=== PATIENT | female | born 1930 | race Caucasian/White ===

== ENCOUNTER → 2016-04-30 | Outpatient (REF) ==
[~2016-04-30] MED LIST: AMBIEN 10MG10 MG PO; CALCIUM1 CAP PO; CRESTOR40 MG PO; DITROPAN 5MG TAB5 MG PO; FERRATE325 MG PO; FISH OIL1000 MG PO; GLUCOPHAGE500 MG/TAB PO; GLUCOSAMINE500 MG PO; K-DUR 2020 MEQ PO; LASIX 20MG TABL20 MG PO; LEVOXYL0.05 MG PO; LEVOXYL0.075 MG PO; LISINOPRIL PO; MULTIPLE VITAMI1 TA3 PO; NATURAL E400 IU PO; NIACIN1 POW PO; STOOL SOFTENER100 M2 PO; THEO-DUR 3300 MG/TAB PO; VESICARE10 MG PO; VITAMIN B121000 MC2 PO; ZESTRIL40 MG PO
== END ==
LOC: ZLAB.WCH 16:15
DX: Z01.89 Encounter for other specified special examinations (principal)

== ENCOUNTER → 2017-01-24 | Outpatient (CLI) | payer MEDICARE | LOC: MC.RAD 14:00 | DX: Z12.31 Encounter for screening mammogram for malignant neoplasm of breast (principal) ==

== ENCOUNTER → 2018-01-20 | Outpatient (CLI) | payer MEDICARE ==
[2018-01-20 14:05] LABS: CALCIUM 9.4 mg/dL (8.4-10.2); CREATININE, serum 1.34 mg/dL (0.52-1.25); POTASSIUM 4.7 mmol/L (3.4-5.0)
[2018-01-20 14:17] LABS: THEOPHYLLINE 8.3 ug/mL (10.0-20.0)
== END ==
LOC: ZLAB.STJ 13:51
PROVIDERS: Family Medicine
DX: J44.1 Chronic obstructive pulmonary disease with (acute) exacerbation (principal); I07.1 Rheumatic tricuspid insufficiency

== ENCOUNTER → 2018-02-12 | Outpatient (CLI) | payer MEDICARE ==
[2018-02-12 11:50] LABS: ALBUMIN 4.1 gm/dL (3.5-5.0); BILIRUBIN,TOTAL 0.5 mg/dL (0.0-1.0); CALCIUM 9.5 mg/dL (8.4-10.2); CHOLESTEROL RISK RATIO 3.8; CREATININE, serum 1.81 mg/dL (0.52-1.25); POTASSIUM 4.3 mmol/L (3.4-5.0)
[2018-02-12 11:52] LABS: BASO % 0.6 % (0.0-2.0); EOS # 0.2 (0.0-0.7); EOS % 3.7 % (0-4.0); GRAN # 3.2 (1.4-6.5); GRAN % 65.7 % (42.2-75.2); LYMPH % 20.3 % (20.0-51.0); MEAN CELL VOLUME 93 fl (80.0-100.0); MEAN CORPUSCULAR HEMOGLOBIN 30 pg (27.0-31.0); MEAN CORPUSCULAR HGB CONC 33 g/dl (33.0-37.0); MEAN PLATELET VOLUME 11.2 fl (7.4-10.4); MONO # 0.5 (0.1-0.6); MONO % 9.3 % (1.7-9.3); PLATELET COUNT 172 K/mm3 (130-400); RED BLOOD COUNT 3.63 M/mm3 (4.10-5.30); REDCELL DISTRIBUTION WIDTH-CV 13.6 % (11.5-14.5)
[2018-02-12 11:53] LABS: HEMATOCRIT 33.7 % (37.0-47.0)
== END ==
LOC: ZLAB.STJ 11:00
PROVIDERS: Family Medicine
DX: I50.9 Heart failure, unspecified (principal); D64.9 Anemia, unspecified

== ENCOUNTER → 2018-02-19 | Outpatient (CLI) | payer MEDICARE ==
[2018-02-19 10:37] LABS: CALCIUM 9.5 mg/dL (8.4-10.2); CREATININE, serum 1.57 mg/dL (0.52-1.25); POTASSIUM 4.6 mmol/L (3.4-5.0)
== END ==
LOC: ZLAB.STJ 09:43
PROVIDERS: Family Medicine
DX: I50.9 Heart failure, unspecified (principal)

== ENCOUNTER 2018-02-21 21:14 | Emergency (ER) | payer MEDICARE ==
[~2018-02-21] VITALS: Ht 160 cm; Wt 81.8 kg
[~2018-02-21 21:14] MED LIST changes: +THEO-DUR 1100 MG/TAB PO; -THEO-DUR 3300 MG/TAB PO
[2018-02-21 21:26] VITALS: TEMP 99
[2018-02-21] MEDS ORDERED: DEMADEX 20MG20 M1 PO (21:37)
[2018-02-21] MEDS ORDERED: SINGULAIR 110 MG/TAB PO (21:38)
[2018-02-21] MEDS ORDERED: MULTIPLE VITAMI1 CAP PO (21:39)
[2018-02-21] MEDS ORDERED: PROBIOTIC FORMU1 CAP PO (21:39)
[2018-02-21] MEDS ORDERED: COZAAR 25MG25 MG/TAB PO (21:40)
[2018-02-21] MEDS ORDERED: SYNTHROID0.075 MG/T PO (21:41)
[2018-02-21] MEDS ORDERED: CRANBERRY 100 M1 SGL PO (21:42)
[2018-02-21 21:43] LABS: BASO % 0.3 % (0.0-2.0); EOS # 0.1 (0.0-0.7); EOS % 0.6 % (0-4.0); GRAN # 6.3 (1.4-6.5); GRAN % 72.1 % (42.2-75.2); HEMOGLOBIN 10.9 g/dl (12.5-16.0); LYMPH # 1.6 (1.2-3.4); LYMPH % 18.3 % (20.0-51.0); MEAN CELL VOLUME 92 fl (80.0-100.0); MEAN CORPUSCULAR HEMOGLOBIN 30 pg (27.0-31.0); MEAN CORPUSCULAR HGB CONC 33 g/dl (33.0-37.0); MEAN PLATELET VOLUME 11.1 fl (7.4-10.4); MONO # 0.7 (0.1-0.6); MONO % 8.4 % (1.7-9.3); PLATELET COUNT 178 K/mm3 (130-400); RED BLOOD COUNT 3.59 M/mm3 (4.10-5.30); REDCELL DISTRIBUTION WIDTH-CV 14.2 % (11.5-14.5)
[2018-02-21] MEDS ORDERED: TYLENOL 500MG500 MG PO (21:43)
[2018-02-21] MEDS ORDERED: RT ADVAIR 228 DISKUS IH (21:44)
[2018-02-21 21:45] LABS: INR 1.2 (0.8-3.0); PROTHROMBIN TIME 13.1 SECONDS (9.7-12.8)
[2018-02-21] MEDS ORDERED: ASPIRIN 81M81 MG/TA2 PO (21:45)
[2018-02-21] MEDS ORDERED: CALCIUM 600MG+D1 TAB PO (21:47)
[2018-02-21] MEDS ORDERED: COREG 3.123.125 MG/T PO (21:47)
[2018-02-21 21:48] LABS: PARTIAL THROMBOPLASTIN TIME 33.8 SECONDS (26.0-37.0)
[2018-02-21] MEDS ORDERED: CEFACLOR250 MG PO (21:48)
[2018-02-21] MEDS ORDERED: ZAROXOLYN 2.52.5 MG PO (21:50)
[2018-02-21] MEDS ORDERED: TYLENOL 325MG325 MG PO (21:51)
[2018-02-21 21:58] LABS: ALBUMIN 4.2 gm/dL (3.5-5.0); BILIRUBIN,TOTAL 0.7 mg/dL (0.0-1.0); C-REACTIVE PROTEIN 6.9 mg/dL (0.0-0.9); CALCIUM 9.7 mg/dL (8.4-10.2); CREATININE, serum 1.72 mg/dL (0.52-1.25); POTASSIUM 3.9 mmol/L (3.4-5.0); TOTAL PROTEIN 7.6 gm/dL (6.4-8.2)
[2018-02-21 22:16] LABS: TROPONIN-I 0.103 ng/mL (0.000-0.034)
[2018-02-21 22:19] LABS: COLLECTION METHOD CATHETER
[2018-02-21 22:31] LABS: HYALINE CAST >12 /lpf; MUCOUS Present /lpf; PH 5 (5-8); SQUAMOUS EPITHELIAL None Seen /hpf; URINE APPEARANCE Hazy; URINE BACTERIA None Seen /hpf; URINE BILIRUBIN Negative (NEGATIVE); URINE BLOOD Negative (NEGATIVE); URINE COLOR Yellow; URINE GLUCOSE Negative (NEGATIVE); URINE KETONE Negative (NEGATIVE); URINE LEUKOCYTE ESTERASE Negative (NEGATIVE); URINE NITRATE Negative (NEGATIVE); URINE PROTEIN(semi-quant) 1+ (NEGATIVE); URINE UROBILINOGEN Negative (NEGATIVE)
[2018-02-21 23:24] VITALS: BP 105/79; PULSE 86
== END 2018-02-21 23:20 | disposition short-term general hospital (02) ==
LOC: COL.ER 21:14
PROVIDERS: Emergency Medicine
DX: I48.91 Unspecified atrial fibrillation (principal); I21.4 Non-ST elevation (NSTEMI) myocardial infarction; I44.7 Left bundle-branch block, unspecified; N19 Unspecified kidney failure; I11.0 Hypertensive heart disease with heart failure; I50.9 Heart failure, unspecified; E78.5 Hyperlipidemia, unspecified; Z79.82 Long term (current) use of aspirin; Z79.899 Other long term (current) drug therapy
CPT/HCPCS: J1650

== ENCOUNTER → 2018-03-03 | Outpatient (CLI) | payer MEDICARE ==
[~2018-03-03] MED LIST changes: +ASPIRIN 81M81 MG/TA2 PO; +CALCIUM 600MG+D1 TAB PO; +CEFACLOR250 MG PO; +COREG 3.123.125 MG/T PO; +COZAAR 25MG25 MG/TAB PO; +CRANBERRY 100 M1 SGL PO; +DEMADEX 20MG20 M1 PO; +MULTIPLE VITAMI1 CAP PO; +PROBIOTIC FORMU1 CAP PO; +RT ADVAIR 228 DISKUS IH; +SINGULAIR 110 MG/TAB PO; +SYNTHROID0.075 MG/T PO; +TYLENOL 325MG325 MG PO; +TYLENOL 500MG500 MG PO; +ZAROXOLYN 2.52.5 MG PO
[2018-03-03 10:17] LABS: CALCIUM 8.9 mg/dL (8.4-10.2); CREATININE, serum 1.6 mg/dL (0.52-1.25); POTASSIUM 4.6 mmol/L (3.4-5.0)
== END ==
LOC: ZLAB.STJ 10:03
PROVIDERS: Family Medicine
DX: I50.9 Heart failure, unspecified (principal)

== ENCOUNTER → 2018-03-04 | Outpatient (CLI) | payer MEDICARE | LOC: ZLAB.STJ 11:35 | DX: Z13.1 Encounter for screening for diabetes mellitus (principal) ==

== ENCOUNTER 2018-04-16 13:37 | Observation (INO) | payer MEDICARE ==
[~2018-04-16] VITALS: Ht 157.5 cm; Wt 78.2 kg
[2018-04-16 14:12] LABS: BASO % 0.7 % (0.0-2.0); EOS # 0.1 (0.0-0.7); EOS % 0.8 % (0-4.0); GRAN # 4.3 (1.4-6.5); HEMOGLOBIN 10.5 g/dl (12.5-16.0); LYMPH # 1.1 (1.2-3.4); LYMPH % 17.4 % (20.0-51.0); MEAN CELL VOLUME 95 fl (80.0-100.0); MEAN CORPUSCULAR HEMOGLOBIN 31 pg (27.0-31.0); MEAN CORPUSCULAR HGB CONC 33 g/dl (33.0-37.0); MEAN PLATELET VOLUME 10.5 fl (7.4-10.4); MONO # 0.5 (0.1-0.6); MONO % 8.8 % (1.7-9.3); PLATELET COUNT 192 K/mm3 (130-400); RED BLOOD COUNT 3.37 M/mm3 (4.10-5.30); REDCELL DISTRIBUTION WIDTH-CV 15.8 % (11.5-14.5)
[2018-04-16] MEDS ORDERED: RT ADVAIR 228 DISKUS IH (14:13)
[2018-04-16] MEDS ORDERED: LIPITOR 40MG TA40 MG PO (14:14)
[2018-04-16 14:15] LABS: HEMATOCRIT 31.9 % (37.0-47.0)
[2018-04-16 14:17] LABS: INR 1.4 (0.8-3.0); PROTHROMBIN TIME 15.8 SECONDS (9.7-12.8)
[2018-04-16] MEDS ORDERED: SINGULAIR 110 MG/TAB PO (14:19)
[2018-04-16 14:20] LABS: PARTIAL THROMBOPLASTIN TIME 33.5 SECONDS (26.0-37.0)
[2018-04-16] MEDS ORDERED: THEO-DUR 3300 MG/TAB PO (14:20)
[2018-04-16] MEDS ORDERED: ELIQUIS 2.5 PO (14:21)
[2018-04-16] MEDS ORDERED: CORDARONE200 MG/TAB PO (14:21)
[2018-04-16] MEDS ORDERED: AMBIEN 5MG TABLE5 MG PO (14:23)
[2018-04-16] MEDS ORDERED: NOVOLOG 100U100 U/M1 SQ (14:23)
[2018-04-16 14:27] LABS: BILIRUBIN,TOTAL 0.3 mg/dL (0.0-1.0); CALCIUM 9.2 mg/dL (8.4-10.2); CREATININE, serum 1.92 mg/dL (0.52-1.25); POTASSIUM 4.3 mmol/L (3.4-5.0); TOTAL PROTEIN 6.9 gm/dL (6.4-8.2)
[2018-04-16 15:01] LABS: TROPONIN-I 0.04 ng/mL (0.000-0.034)
[2018-04-16 16:45] LABS: THEOPHYLLINE 11.5 ug/mL (10.0-20.0)
[2018-04-16 17:24] LABS: TSH w REFLEX 6.59 uIU/mL (0.465-4.680)
[2018-04-16 17:58] VITALS: BP 100/69; PULSE 119; TEMP 98
[2018-04-16 19:09] LABS: COLLECTION METHOD CATHETER
[2018-04-16 19:30] VITALS: BP 110/70; PULSE 61; TEMP 98
[2018-04-16 21:13] LABS: MUCOUS Present /lpf; PH 5 (5-8); SQUAMOUS EPITHELIAL 0-2 /hpf; URINE APPEARANCE Clear; URINE BACTERIA None Seen /hpf; URINE BILIRUBIN Negative (NEGATIVE); URINE BLOOD Negative (NEGATIVE); URINE COLOR Yellow; URINE GLUCOSE Negative (NEGATIVE); URINE KETONE Negative (NEGATIVE); URINE LEUKOCYTE ESTERASE Trace (NEGATIVE); URINE NITRATE Negative (NEGATIVE); URINE PROTEIN(semi-quant) Negative (NEGATIVE); URINE RBC 0-2 /hpf; URINE UROBILINOGEN Negative (NEGATIVE)
[2018-04-17 00:06] VITALS: BP 103/65; PULSE 79; TEMP 97.8
[2018-04-17 03:29] VITALS: BP 106/70; PULSE 84; TEMP 98
[2018-04-17 04:10] VITALS: BP 98/56; PULSE 114; TEMP 97.7
[2018-04-17 06:01] LABS: BASO % 0.8 % (0.0-2.0); EOS # 0.1 (0.0-0.7); EOS % 1.2 % (0-4.0); GRAN # 3.4 (1.4-6.5); GRAN % 68.1 % (42.2-75.2); HEMOGLOBIN 10.2 g/dl (12.5-16.0); LYMPH # 1.1 (1.2-3.4); LYMPH % 21.6 % (20.0-51.0); MEAN CELL VOLUME 96 fl (80.0-100.0); MEAN CORPUSCULAR HEMOGLOBIN 31 pg (27.0-31.0); MEAN CORPUSCULAR HGB CONC 33 g/dl (33.0-37.0); MEAN PLATELET VOLUME 10.7 fl (7.4-10.4); MONO # 0.4 (0.1-0.6); MONO % 8.1 % (1.7-9.3); PLATELET COUNT 158 K/mm3 (130-400); RED BLOOD COUNT 3.25 M/mm3 (4.10-5.30); REDCELL DISTRIBUTION WIDTH-CV 15.9 % (11.5-14.5)
[2018-04-17 06:05] LABS: HEMATOCRIT 31.1 % (37.0-47.0)
[2018-04-17 06:25] LABS: CALCIUM 8.7 mg/dL (8.4-10.2); CREATININE, serum 1.73 mg/dL (0.52-1.25)
[2018-04-17 09:20] VITALS: BP 107/63; PULSE 61; TEMP 97.9
[2018-04-17 12:44] VITALS: BP 123/62; PULSE 64; TEMP 97.5
[2018-04-17 12:54] VITALS: BP 123/62; PULSE 59; TEMP 97.5
[2018-04-17] MEDS ORDERED: PACERONE400 MG PO (13:28)
== END 2018-04-17 15:23 | disposition home or self-care (01) ==
LOC: COL.ER 13:37 → MEDICAL 14:55
PROVIDERS: Family Medicine; Physician Assistant
DX: I48.0 Paroxysmal atrial fibrillation (principal); I25.10 Atherosclerotic heart disease of native coronary artery without angina pectoris; E78.5 Hyperlipidemia, unspecified; J45.909 Unspecified asthma, uncomplicated; E11.9 Type 2 diabetes mellitus without complications; E03.9 Hypothyroidism, unspecified; I25.2 Old myocardial infarction; D64.9 Anemia, unspecified; I13.0 Hypertensive heart and chronic kidney disease with heart failure and stage 1 through stage 4 chronic kidney disease, or unspecified chronic kidney disease; N18.9 Chronic kidney disease, unspecified; I50.9 Heart failure, unspecified; R91.1 Solitary pulmonary nodule; N39.0 Urinary tract infection, site not specified; Z79.01 Long term (current) use of anticoagulants; Z79.82 Long term (current) use of aspirin; Z96.649 Presence of unspecified artificial hip joint; Z82.49 Family history of ischemic heart disease and other diseases of the circulatory system
CPT/HCPCS: 99222-AI; 99232-AI; G0378; J2704; J7030; J7050

== ENCOUNTER → 2018-05-13 | Outpatient (CLI) | payer MEDICARE ==
[~2018-05-13] MED LIST changes: +AMBIEN 5MG TABLE5 MG PO; +CORDARONE200 MG/TAB PO; +ELIQUIS 2.5 PO; +LIPITOR 40MG TA40 MG PO; +NOVOLOG 100U100 U/M1 SQ; +PACERONE400 MG PO; +THEO-DUR 3300 MG/TAB PO
[2018-05-13 13:57] LABS: COLLECTION METHOD CLEAN CATCH
[2018-05-13 14:21] LABS: PH 7 (5-8); SQUAMOUS EPITHELIAL 0-2 /hpf; URINE APPEARANCE Clear; URINE BACTERIA None Seen /hpf; URINE BILIRUBIN Negative (NEGATIVE); URINE BLOOD Negative (NEGATIVE); URINE COLOR Straw; URINE GLUCOSE Negative (NEGATIVE); URINE KETONE Negative (NEGATIVE); URINE LEUKOCYTE ESTERASE 1+ (NEGATIVE); URINE NITRATE Negative (NEGATIVE); URINE PROTEIN(semi-quant) Negative (NEGATIVE); URINE RBC 0-2 /hpf; URINE UROBILINOGEN Negative (NEGATIVE)
== END ==
LOC: ZLAB.STJ 11:03
PROVIDERS: Family Medicine
DX: R35.0 Frequency of micturition (principal)

== ENCOUNTER → 2018-05-20 | Outpatient (CLI) | payer MEDICARE ==
[2018-05-20 11:36] LABS: COLLECTION METHOD CLEAN CATCH
[2018-05-20 11:45] LABS: BASO % 0.5 % (0.0-2.0); EOS # 0.1 (0.0-0.7); EOS % 2.2 % (0-4.0); GRAN % 76.3 % (42.2-75.2); LYMPH # 0.7 (1.2-3.4); LYMPH % 11.2 % (20.0-51.0); MEAN CELL VOLUME 92 fl (80.0-100.0); MEAN CORPUSCULAR HGB CONC 32 g/dl (33.0-37.0); MEAN PLATELET VOLUME 10.3 fl (7.4-10.4); MONO # 0.6 (0.1-0.6); MONO % 9.2 % (1.7-9.3); PLATELET COUNT 293 K/mm3 (130-400); RED BLOOD COUNT 3.27 M/mm3 (4.10-5.30); REDCELL DISTRIBUTION WIDTH-CV 15.2 % (11.5-14.5)
[2018-05-20 11:48] LABS: HEMATOCRIT 30.2 % (37.0-47.0); HEMOGLOBIN 9.6 g/dl (12.5-16.0); MEAN CORPUSCULAR HEMOGLOBIN 29 pg (27.0-31.0)
[2018-05-20 11:50] LABS: ALBUMIN 3.7 gm/dL (3.5-5.0); BILIRUBIN,TOTAL 0.6 mg/dL (0.0-1.0); CREATININE, serum 1.57 mg/dL (0.52-1.25); POTASSIUM 3.3 mmol/L (3.4-5.0); TOTAL PROTEIN 6.7 gm/dL (6.4-8.2)
[2018-05-20 12:39] LABS: MUCOUS Present /lpf; PH 5 (5-8); URINE APPEARANCE Hazy; URINE BACTERIA Rare /hpf; URINE BILIRUBIN Negative (NEGATIVE); URINE BLOOD 1+ (NEGATIVE); URINE COLOR Yellow; URINE GLUCOSE Negative (NEGATIVE); URINE KETONE Negative (NEGATIVE); URINE LEUKOCYTE ESTERASE 2+ (NEGATIVE); URINE NITRATE Negative (NEGATIVE); URINE PROTEIN(semi-quant) Negative (NEGATIVE); URINE UROBILINOGEN Negative (NEGATIVE)
== END ==
LOC: ZLAB.STJ 09:48
PROVIDERS: Family Medicine
DX: R35.0 Frequency of micturition (principal)

== ENCOUNTER → 2018-06-09 | Outpatient (CLI) | payer MEDICARE ==
[2018-06-09 15:06] LABS: COLLECTION METHOD CATHETER
[2018-06-09 15:40] LABS: MUCOUS Present /lpf; PH 7 (5-8); URINE APPEARANCE Clear; URINE BACTERIA None Seen /hpf; URINE BILIRUBIN Negative (NEGATIVE); URINE BLOOD Negative (NEGATIVE); URINE COLOR Yellow; URINE GLUCOSE Negative (NEGATIVE); URINE KETONE Negative (NEGATIVE); URINE LEUKOCYTE ESTERASE 1+ (NEGATIVE); URINE NITRATE Negative (NEGATIVE); URINE PROTEIN(semi-quant) 1+ (NEGATIVE); URINE RBC 0-2 /hpf; URINE UROBILINOGEN Negative (NEGATIVE)
== END ==
LOC: ZLAB.STJ 14:30
PROVIDERS: Family Medicine
DX: R35.0 Frequency of micturition (principal)

== ENCOUNTER → 2018-06-27 | Outpatient (CLI) | payer MEDICARE ==
[2018-06-28 17:57] LABS: CALCIUM 9.5 mg/dL (8.4-10.2); CREATININE, serum 1.77 mg/dL (0.52-1.25); POTASSIUM 4.5 mmol/L (3.4-5.0); THYROID STIMULATING HORMONE 8.09 uIU/mL (0.465-4.680)
[2018-06-28 17:59] LABS: BASO # 0.1 (0.0-0.2); BASO % 0.9 % (0.0-2.0); EOS # 0.1 (0.0-0.7); EOS % 1.9 % (0-4.0); GRAN % 70.1 % (42.2-75.2); HEMATOCRIT 31.4 % (37.0-47.0); HEMOGLOBIN 10.1 g/dl (12.5-16.0); LYMPH % 18.2 % (20.0-51.0); MEAN CELL VOLUME 92 fl (80.0-100.0); MEAN CORPUSCULAR HEMOGLOBIN 29 pg (27.0-31.0); MEAN CORPUSCULAR HGB CONC 32 g/dl (33.0-37.0); MEAN PLATELET VOLUME 10.9 fl (7.4-10.4); MONO # 0.5 (0.1-0.6); MONO % 8.7 % (1.7-9.3); PLATELET COUNT 167 K/mm3 (130-400); RED BLOOD COUNT 3.43 M/mm3 (4.10-5.30); REDCELL DISTRIBUTION WIDTH-CV 17.6 % (11.5-14.5)
== END ==
LOC: ZLAB.STJ 07:00
PROVIDERS: Family Medicine
DX: D64.9 Anemia, unspecified (principal); E03.9 Hypothyroidism, unspecified

== ENCOUNTER → 2018-08-18 | Outpatient (CLI) | payer MEDICARE ==
[2018-08-18 14:59] LABS: CALCIUM 9.5 mg/dL (8.4-10.2); CREATININE, serum 2.33 (0.52-1.25); POTASSIUM 4.4 mmol/L (3.4-5.0)
== END ==
LOC: ZLAB.STJ 13:43
PROVIDERS: Family Medicine
DX: I12.9 Hypertensive chronic kidney disease with stage 1 through stage 4 chronic kidney disease, or unspecified chronic kidney disease (principal); N18.4 Chronic kidney disease, stage 4 (severe); E87.6 Hypokalemia

== ENCOUNTER 2018-09-21 09:36 | Inpatient (IN) | payer MEDICARE ==
[~2018-09-21] VITALS: Ht 160 cm; Wt 82.1 kg
[~2018-09-21 09:36] MED LIST changes: -ASPIRIN 81M81 MG/TA2 PO; +ASPIRIN E.C. 8181 MG PO; -CALCIUM 600MG+D1 TAB PO; +OS-CAL 500 + D1 TAB PO
[2018-09-21 10:09] LABS: BASO % 0.5 % (0.0-2.0); EOS # 0.1 (0.0-0.7); EOS % 1.4 % (0-4.0); GRAN # 4.6 (1.4-6.5); GRAN % 74.3 % (42.2-75.2); HEMATOCRIT 37.9 % (37.0-47.0); HEMOGLOBIN 12.3 g/dl (12.5-16.0); LYMPH % 16.4 % (20.0-51.0); MEAN CELL VOLUME 93 fl (80.0-100.0); MEAN CORPUSCULAR HEMOGLOBIN 30 pg (27.0-31.0); MEAN CORPUSCULAR HGB CONC 33 g/dl (33.0-37.0); MEAN PLATELET VOLUME 10.2 fl (7.4-10.4); MONO # 0.4 (0.1-0.6); MONO % 7.1 % (1.7-9.3); PLATELET COUNT 175 K/mm3 (130-400); RED BLOOD COUNT 4.09 M/mm3 (4.10-5.30); REDCELL DISTRIBUTION WIDTH-CV 18.3 % (11.5-14.5)
[2018-09-21] MEDS ORDERED: CORDARONE200 MG/TAB PO (10:10)
[2018-09-21 10:11] LABS: INR 1.3 (0.8-3.0); PROTHROMBIN TIME 15.4 SECONDS (9.7-12.8)
[2018-09-21 10:13] LABS: PARTIAL THROMBOPLASTIN TIME 37.1 SECONDS (26.0-37.0)
[2018-09-21 10:15] LABS: ALBUMIN 4.3 gm/dL (3.5-5.0); BILIRUBIN,TOTAL 0.7 mg/dL (0.0-1.0); CALCIUM 9.7 mg/dL (8.4-10.2); CREATININE, serum 2.2 (0.52-1.25); POTASSIUM 4.4 mmol/L (3.4-5.0); TOTAL PROTEIN 7.9 gm/dL (6.4-8.2)
[2018-09-21 10:27] LABS: TROPONIN-I 0.024 ng/mL (0.000-0.035)
[2018-09-21] MEDS ORDERED: RESTORIL30 MG PO (10:28)
[2018-09-21] MEDS ORDERED: DEMADEX10 MG PO (10:29)
[2018-09-21] MEDS ORDERED: PRINIVIL2.5 MG PO (10:29)
[2018-09-21] MEDS ORDERED: BREO IH (10:30)
[2018-09-21] MEDS ORDERED: IRON TABLETS325 MG PO (10:31)
[2018-09-21 17:01] VITALS: BP 136/36; PULSE 51; TEMP 98.3
[2018-09-21 18:24] VITALS: BP 130/89; PULSE 56; TEMP 98.5
--- NOTE | 2018-09-21 19:10 | NUR ---
Report given to off going shift. Patient is resting in bed, head elevated, watching tv. Personal items and call light are within reach.
--- NOTE | 2018-09-21 19:24 | NUR ---
Patient resting in bed, assessment completed. States has no pain. Ambulatory with walker, pt calls when needing assistance. Trace edema in lower extremities. Has no furthe rneeds at this itme.
[2018-09-21 19:28] VITALS: BP 129/48; PULSE 56; TEMP 98.6
--- NOTE | 2018-09-21 21:50 | NUR ---
Pt appears somewhat forgetful/confused, changed to high fall risk. Fall risk precautions now in place. Bed alarm on.
[2018-09-21 23:41] VITALS: BP 130/61; PULSE 57; TEMP 97.8
[2018-09-22 03:38] VITALS: BP 129/47; PULSE 58; TEMP 97.9
--- NOTE | 2018-09-22 05:05 | NUR ---
Pt slept on/off last night, up a few times to use the restroom. VSS, no reports of pain. Sinus heath on telemetry, HR occassionally dipped into low 40's, but usually was 45-55 while sleeping. No needs at this time.
[2018-09-22 07:18] VITALS: BP 145/49; PULSE 95; TEMP 97.7
[2018-09-22 08:41] LABS: BASO % 0.2 % (0.0-2.0); EOS # 0.1 (0.0-0.7); EOS % 1.7 % (0-4.0); GRAN # 3.7 (1.4-6.5); GRAN % 70.8 % (42.2-75.2); HEMOGLOBIN 11.3 g/dl (12.5-16.0); LYMPH # 1.1 (1.2-3.4); LYMPH % 20.3 % (20.0-51.0); MEAN CELL VOLUME 93 fl (80.0-100.0); MEAN CORPUSCULAR HEMOGLOBIN 30 pg (27.0-31.0); MEAN CORPUSCULAR HGB CONC 32 g/dl (33.0-37.0); MEAN PLATELET VOLUME 10.1 fl (7.4-10.4); MONO # 0.3 (0.1-0.6); MONO % 6.6 % (1.7-9.3); PLATELET COUNT 171 K/mm3 (130-400); RED BLOOD COUNT 3.78 M/mm3 (4.10-5.30); REDCELL DISTRIBUTION WIDTH-CV 18.4 % (11.5-14.5)
[2018-09-22 08:54] LABS: CALCIUM 9.4 mg/dL (8.4-10.2); CREATININE, serum 1.9 (0.52-1.25); POTASSIUM 4.1 mmol/L (3.4-5.0)
--- NOTE | 2018-09-22 09:20 | NUR ---
Pt resting in bed, no C/O pain at this time, shift assessments complete, left Pt call light in reach, bed in lowest position, bed alarm on.
[2018-09-22 10:37] VITALS: BP 133/50; PULSE 56; TEMP 97.7
[2018-09-22 15:22] VITALS: BP 113/50; PULSE 61; TEMP 97.8
--- NOTE | 2018-09-22 18:17 | NUR ---
Pt rested during the day, no C/O pain today, Vs have remained stable.
[2018-09-22 19:27] VITALS: BP 141/46; PULSE 55; TEMP 98.3
--- NOTE | 2018-09-22 19:48 | NUR ---
Patient resting in bed with family at bedside. Assessment completed, no complaints of pain. Asking for some information about procedure in the morning. Printed off stress test education and gave to patient and patien'ts daughter and told them to refer any questions to this nurse. No further questions at this time.
[2018-09-22 23:54] VITALS: BP 127/47; PULSE 56; TEMP 97.4
[2018-09-23] VITALS (10 sets, daily range): BP systolic 100–137; BP diastolic 46–84; PULSE 52–87; TEMP 97.3–98.1
[2018-09-23 06:22] LABS: BASO % 0.6 % (0.0-2.0); EOS # 0.1 (0.0-0.7); GRAN # 3.6 (1.4-6.5); GRAN % 72.6 % (42.2-75.2); HEMOGLOBIN 12.2 g/dl (12.5-16.0); LYMPH # 0.8 (1.2-3.4); LYMPH % 15.3 % (20.0-51.0); MEAN CELL VOLUME 92 fl (80.0-100.0); MEAN CORPUSCULAR HEMOGLOBIN 30 pg (27.0-31.0); MEAN CORPUSCULAR HGB CONC 32 g/dl (33.0-37.0); MEAN PLATELET VOLUME 10.5 fl (7.4-10.4); MONO # 0.5 (0.1-0.6); MONO % 9.1 % (1.7-9.3); PLATELET COUNT 189 K/mm3 (130-400); RED BLOOD COUNT 4.12 M/mm3 (4.10-5.30); REDCELL DISTRIBUTION WIDTH-CV 18.5 % (11.5-14.5)
[2018-09-23 06:36] LABS: CREATININE, serum 1.91 (0.52-1.25)
--- NOTE | 2018-09-23 06:50 | NUR ---
report given to ethan carrington.
--- NOTE | 2018-09-23 10:28 | NUR ---
Pt resting in bed, no C/O pain at this time, shift assessments complete, left Pt call light in reach, bed in lowest position, bed alarm on.
--- NOTE | 2018-09-23 11:17 | NUR ---
Initial visit; Patient thanked [employer]ical [employer] Aide for looking in on her, offering God's blessings and to keep her in Biomedical [employer] Aide's prayers. Patient states she has a wonderful family and a good support system.
--- NOTE | 2018-09-23 14:14 | NUR ---
SW met with patient about discharge planning. Patient lives at [facility] and plans to return there upon discharge. Patient's PCP is Dr Magana and she obtains prescriptions from [facility]. Patient uses a four wheeled walker but no other DME is reported and patient does not use any home health services. Patient does have a DPOA. JASON requested a copy from [facility]. JASON also faxed updates to [facility]. JASON will continue to follow.
--- NOTE | 2018-09-23 17:35 | NUR ---
Pt resting in bed, she has had issues with pain control after being changed to oral medications, at this time her pain level is tolerable and reduced from earlier today, she has been eating a bland diet with success, she was given a GI Cocktail and she stated that that intervention helped with the pain and nausea. Pt's VS have been stable throughout the day.
--- NOTE | 2018-09-23 19:58 | NUR ---
Initial shift assessment done- denies pain alert/oriented to person/place/forgetful- states cant sleep- will give sleeping pill thats ordered tonight- NPO after MN for pacemaker placment- will call daughter for consent tonight.
--- NOTE | 2018-09-23 20:40 | NUR ---
Called daughter Modesta to see about consent for the pacemaker tomorrow at 0830- states will not sign any consent until talks with the cosmetics machine operator-states the cosmetics machine operator can call her in the morning-
[2018-09-24 03:22] VITALS: BP 131/55; PULSE 58; TEMP 97.9
--- NOTE | 2018-09-24 05:55 | NUR ---
Did get some sleep during the night- VSS, Tele on- rate 47-60 , scd,s on, Up to bathroom to void 3-4 times during the night- NP0 after MN for pacemaker -
[2018-09-24 07:03] LABS: BASO % 0.4 % (0.0-2.0); EOS # 0.1 (0.0-0.7); GRAN # 3.6 (1.4-6.5); GRAN % 72.2 % (42.2-75.2); HEMATOCRIT 38.3 % (37.0-47.0); HEMOGLOBIN 12.4 g/dl (12.5-16.0); LYMPH # 0.8 (1.2-3.4); LYMPH % 15.8 % (20.0-51.0); MEAN CELL VOLUME 93 fl (80.0-100.0); MEAN CORPUSCULAR HEMOGLOBIN 30 pg (27.0-31.0); MEAN CORPUSCULAR HGB CONC 32 g/dl (33.0-37.0); MEAN PLATELET VOLUME 10.2 fl (7.4-10.4); MONO # 0.5 (0.1-0.6); MONO % 9.2 % (1.7-9.3); PLATELET COUNT 188 K/mm3 (130-400); RED BLOOD COUNT 4.13 M/mm3 (4.10-5.30); REDCELL DISTRIBUTION WIDTH-CV 18.7 % (11.5-14.5)
[2018-09-24 07:19] LABS: CALCIUM 10.2 mg/dL (8.4-10.2); CREATININE, serum 1.95 (0.52-1.25); POTASSIUM 4.2 mmol/L (3.4-5.0)
[2018-09-24 07:24] VITALS: BP 139/48; PULSE 53; TEMP 97.6
[2018-09-24 11:35] VITALS: BP 127/80; PULSE 59; TEMP 97.4
--- NOTE | 2018-09-24 12:49 | NUR ---
Pt in bed rseting, family in room with Pt, no C/O pain at this time, shift assessments complete, left Pt call light in reach, bed in lowest position, bed alarm on.
--- NOTE | 2018-09-24 13:52 | NUR ---
Patient will discharge back to [facility]. JASON presented IM to patient and her family. Patient's son signed and did not want a copy. JASON will fax discharge orders to [facility].
--- NOTE | 2018-09-24 16:00 | NUR ---
Pt discharged to home, teaching completed, son to transport to living facility, escorted to [facility].
== END 2018-09-24 16:00 | disposition home or self-care (01) | DRG 309 ==
LOC: COL.ER 09:36 → MEDICAL 12:19
PROVIDERS: Family Medicine; Nurse Practitioner Family; ADMIT Hospitalist
DX: I48.91 Unspecified atrial fibrillation (principal); I50.22 Chronic systolic (congestive) heart failure; I13.0 Hypertensive heart and chronic kidney disease with heart failure and stage 1 through stage 4 chronic kidney disease, or unspecified chronic kidney disease; N39.0 Urinary tract infection, site not specified; I06.9 Rheumatic aortic valve disease, unspecified; I44.7 Left bundle-branch block, unspecified; R00.1 Bradycardia, unspecified; I49.5 Sick sinus syndrome; I25.10 Atherosclerotic heart disease of native coronary artery without angina pectoris; E78.5 Hyperlipidemia, unspecified; E11.9 Type 2 diabetes mellitus without complications; J45.909 Unspecified asthma, uncomplicated; E03.9 Hypothyroidism, unspecified; D50.9 Iron deficiency anemia, unspecified; E11.22 Type 2 diabetes mellitus with diabetic chronic kidney disease; N18.9 Chronic kidney disease, unspecified; R91.1 Solitary pulmonary nodule
CPT/HCPCS: OP; 99222-AI; 99231-AI; 99233-AI; 99239; A9500; J1815; J2785

== ENCOUNTER → 2018-09-29 | Outpatient (CLI) | payer MEDICARE ==
[~2018-09-29] MED LIST changes: +BREO IH; +DEMADEX10 MG PO; +IRON TABLETS325 MG PO; +PRINIVIL2.5 MG PO; +RESTORIL30 MG PO
[2018-09-29 11:49] LABS: CALCIUM 9.2 mg/dL (8.4-10.2); CREATININE, serum 1.98 (0.52-1.25); POTASSIUM 4.8 mmol/L (3.4-5.0)
== END ==
LOC: ZLAB.STJ 10:49
PROVIDERS: Internal Medicine Cardiovascular Disease
DX: I50.22 Chronic systolic (congestive) heart failure (principal); I48.91 Unspecified atrial fibrillation

== ENCOUNTER → 2018-10-06 | Outpatient (CLI) | payer MEDICARE ==
[2018-10-06 14:23] LABS: CALCIUM 9.5 mg/dL (8.4-10.2); CREATININE, serum 1.84 (0.52-1.25); POTASSIUM 4.7 mmol/L (3.4-5.0)
== END ==
LOC: ZLAB.STJ 11:16
PROVIDERS: Family Medicine
DX: I50.9 Heart failure, unspecified (principal)

== ENCOUNTER → 2018-11-11 | Outpatient (CLI) | payer MEDICARE ==
[2018-11-11 16:48] LABS: CALCIUM 9.7 mg/dL (8.4-10.2); CREATININE, serum 1.77 (0.52-1.25)
== END ==
LOC: ZLAB.STJ 15:38
PROVIDERS: Internal Medicine Cardiovascular Disease
DX: I25.10 Atherosclerotic heart disease of native coronary artery without angina pectoris (principal); I11.0 Hypertensive heart disease with heart failure; I50.9 Heart failure, unspecified

== ENCOUNTER → 2019-04-14 | Outpatient (CLI) | payer MEDICARE | LOC: ZLAB.STJ 14:03 | DX: N39.0 Urinary tract infection, site not specified (principal) ==